=== PATIENT | female | born 1995 | race Caucasian/White ===

== ENCOUNTER 2021-05-27 11:07 | Emergency (ER) | payer BC, SELFPAY ==
[2021-05-27 11:17] VITALS: BP 129/90; PULSE 102; RESP 18; TEMP 36.1; O2SAT 100
[2021-05-27 11:19] VITALS: BP 143/90; PULSE 109; RESP 28; O2SAT 94
[2021-05-27 11:32] VITALS: BP 120/72; PULSE 99; RESP 25; O2SAT 100
--- NOTE | 2021-05-27 11:52 | ED.GENADULT ---
HPI - General Adult General Chief complaint: Unspecified Stated complaint: medical oncologist issue Time Seen by Provider: 05/27/21 11:28 Source: patient and RN notes reviewed Mode of arrival: wheelchair Limitations: no limitations History of Present Illness HPI narrative: This is a 26 year old female with history of cerebral palsy who presents for evaluation of difficulty with urinary catherization. Patient has had multiple surgeries performed as a child at [facility] . She reports she had a mitrofanoff created that allows her access to her bladder. She has been having difficulty getting her catheter to access her mitrofanoff. She was unable to get catheter to pass at all today. Her mother states she has been having wet depends due to leakage from urethral. 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 HEAD: enlarged EYES: PERRLA and EOMI, conjunctiva clear without discharge THROAT:Mucous membranes moist, Oropharynx normal without erythema, exudate, peritonsillar swelling or fluctuance NECK: Supple, without lymphadenopathy or mass RESPIRATORY: No respiratory distress, Airway patent, Respirations non-labored, Clear to auscultation without rales, rhonchi or wheeze HEART: Regular rate and rhythm. No murmur heard. Normal peripheral pulses. ABDOMEN: Soft,distended , nontender, normal active bowel sounds. No masses. No rebound or guarding, No organomegaly.umbilicus with clear fluid leakage EXTREMITIES: no movement of lower extremity, contractures SKIN: Warm, dry, normal color without rash NEURO: Alert and oriented x3. PSYCH: Normal mood and affect. Course Reevaluation(s) Reevaluation #1: Taylor OLIVEROS for urologist evaluated patient. She placed mcdonald catheter in patient. She will give number for patient to follow up regarding mili at [facility]. Patient has not symptoms of UTI so no UA needed. Date: 05/27/21 Time: 13:20 Vital Signs Vital signs: Vital Signs Temperature 96.9 F L 05/27/21 11:17 Pulse Rate 102 H 05/27/21 11:17 Respiratory Rate 18 05/27/21 11:17 Blood Pressure 129/90 05/27/21 11:17 Pulse Oximetry 100 05/27/21 11:17 Temperature 96.9 F L 05/27/21 11:17 Pulse Rate 99 05/27/21 11:32 Respiratory Rate 25 H 05/27/21 11:32 Blood Pressure 120/72 05/27/21 11:32 Pulse Oximetry 100 05/27/21 11:32 Medical Decision Making Vital Signs Vital Signs: Vital Signs Temperature 96.9 F L 05/27/21 11:17 Pulse Rate 102 H 05/27/21 11:17 Respiratory Rate 18 05/27/21 11:17 Blood Pressure 129/90 05/27/21 11:17 Pulse Oximetry 100 05/27/21 11:17 Temperature 96.9 F L 05/27/21 11:17 Pulse Rate 99 05/27/21 11:32 Respiratory Rate 25 H 05/27/21 11:32 Blood Pressure 120/72 05/27/21 11:32 Pulse Oximetry 100 05/27/21 11:32 Lab Data Lab results reviewed: Yes I reviewed the patient's lab results. Result diagrams: 05/27/21 12:17 05/27/21 12:17 Labs: Lab Results 05/27/21 05/27/21 Range/Units 12:17 12:17 WBC 7.6 (4.5-10.0) K/mm3 RBC 4.65 (4.2-5.4) M/mm3 Hgb 13.2 (12.0-15.0) g/dL Hct 40.3 (37.0-47.0) % MCV 86.7 (80-100) fl MCH 28.4 (26-34) pg MCHC 32.8 (32-36) g/d
[2021-05-27 12:26] LABS: Basophils Percent Auto 0.5 % (0.2-1.2); Eosinophils Absolute Auto 0.1 K/mm3 (0-0.3); Eosinophils Percent Auto 0.9 % (0-4.4); Hematocrit 40.3 % (37.0-47.0); Hemoglobin 13.2 g/dL (12.0-15.0); Immature Granulocyte Absolute 0.02 K/mm3 (0.00-0.031); Immature Granulocyte Percent A 0.3 % (0-0.5); Lymphocytes Absolute Auto 1.42 K/mm3 (0.9-3.2); Lymphocytes Percent Auto 18.7 % (18.3-44.2); Mean Corpuscular HGB Conc 32.8 g/dl (32-36); Mean Corpuscular Hemoglobin 28.4 pg (26-34); Mean Corpuscular Volume 86.7 fl (80-100); Mean Platelet Volume 9.1 fl (7.4-10.4); Monocytes Absolute Auto 0.6 K/mm3 (0.1-0.6); Monocytes Percent Auto 8.2 % (2.6-8.5); Neutrophils Absolute Auto 5.4 K/mm3 (1.3-6.7); Neutrophils Percent Auto 71.4 % (45.5-73.1); Platelet Count Result 346 k/mm3 (150-375); Red Blood Count 4.65 M/mm3 (4.2-5.4); White Blood Count 7.6 K/mm3 (4.5-10.0)
[2021-05-27 12:36] LABS: Alanine Aminotransferase 26 U/L (4-35); Albumin Level 4.8 g/dL (3.5-5.1); Alkaline Phosphatase 81 U/L (38-126); Anion Gap 8 mmol/L (8-16); Aspartate Amino Transferase 28 U/L (14-36); Bilirubin,Total 0.3 mg/dL (0.2-1.3); Blood Urea Nitrogen 10 mg/dL (7-17); Calcium 9.4 mg/dL (8.4-10.2); Carbon Dioxide 23 mmol/L (22-30); Chloride 106 mmol/L (98-107); Estimated Glomerular Filt Rate > 60; Glucose 95 mg/dL (65-110); Potassium 4.1 mmol/L (3.4-5.0); Sodium 137 mmol/L (137-145)
--- NOTE | 2021-05-27 15:30 | WPDURCON ---
Assessment and Plan Assessment and plan (1) Urinary retention: Code(s): R33.9 - Retention of urine, unspecified Status: Acute (2) Encounter for ureteral catheter placement: Code(s): Z46.6 - Encounter for fitting and adjustment of urinary device Status: Acute Assessment and Plan: The patient was unable to place a catheter in the Mitrofanoff opening. Our group doesn't perform procedures for Mitrofanoff patient's. She will follow up with [facility] for further evaluation. I placed a 16fr catheter in the urethra without difficulty, she tolerated this well and had 200cc of clear yellow urine drained from her bladder. She will keep this in to keep her from having hydronephrosis until she can be seen at [facility]. If she is unable to see them within a month, we can exchange her mcdonald monthly until her appt in the office. She can continue her Oxybutynin 15mg daily to prevent bladder spasms. (3) Mitrofanoff appendicovesicostomy present: Code(s): Z93.52 - Appendico-vesicostomy status Status: Acute Urology Consult Note HPI Date Seen: 05/27/21 Primary Care Provider: Alfred Garrido, PA Consult Narrative Narrative: Wanda Frias is a 26 year old female who presents to the ER this morning with difficulty catheterizing her Mitrofanoff. She reports not having catheterized since yesterday. Her mother is with her at the bedside and is a retired nurse who cares for her at home. She normally catheterizes her if she cannot do it herself, but neither of them were able to pass a catheter. She intermittent cath's 2-3x day usually without any problem. Since she has been unable to catheterize she is now having leakage of urine from the urethral opening and is wearing diapers. She has a history of cerebal palsy and has had urinary retention since she was born. She was catheterized as a baby by her mother in the urethra, but had a Mitrofanoff done at age 4 at [facility]. She denies a history of urinary retention, and has not had chronic UTI's either. She denies symptoms of a UTI today, hematuria, fever or chills. She has minimal to no sensation of her abdomen and pelvis, but states she takes Oxybutynin 15mg ER daily to prevent bladder spasms and is out of re-fills currently. She has tried to reach out to [facility] and [facility] to find a Urologist [facility] but has not found anyone willing to take her as a patient. She has unfortunately aged out of care at [facility] and needs to find transitional care. She has normal GFR and BUN, creatinine is slightly low at 0.2, WBC is within normal limits as well. 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
== END 2021-05-27 13:37 | disposition home or self-care (01) ==
PROVIDERS: Emergency Provider General Practice; PCP Physician Assistant
DX: R33.9 Retention of urine, unspecified (principal); Z93.52 Appendico-vesicostomy status; G80.9 Cerebral palsy, unspecified; G91.9 Hydrocephalus, unspecified; Z98.2 Presence of cerebrospinal fluid drainage device
CPT/HCPCS: 36415; 51702; 80053; 85025; 99283